=== PATIENT | female | born 1980 | race Caucasian/White ===

== ENCOUNTER 2016-07-25 07:34 | Emergency (ER) | payer OTHER ==
[2016-07-25 07:45] VITALS: BMI 26.9
--- NOTE | 2016-07-25 07:53 | PDOC ---
History of Present Illness - General Chief Complaint: Migraine Headache Stated Complaint: HEADACHE/EMPLOYEE Time Seen by Provider: 07/25/16 07:53 History Source: Patient Exam Limitations: No Limitations - History of Present Illness Initial Comments: 07/25/16 07:53 CHIEF COMPLAINT: Headache HISTORY OF PRESENT ILLNESS: This is an otherwise healthy 35-year-old female presents for evaluation of headache. Patient has been taking Augmentin for the past 6 days for treatment of sinusitis. She has also been using Sudafed and Flonase. She reports that she has persistent frontal headache, worse on the left side, described as "pressure". She reports that her vision is "a little blurry." She has some mild photophobia and phonophobia. She denies nausea, focal weakness, dizziness, unsteady gait, or any other symptoms. She reports that she gets headaches frequently, but that this one is more intense than her usual. Vital signs on arrival are unremarkable. REVIEW OF SYSTEMS: GENERAL/CONSTITUTIONAL: Generalized weakness, malaise. No fever or chills. No weight change. HEAD, EYES, EARS, NOSE AND THROAT: Nasal congestion. No ear pain or discharge. No sore throat. CARDIOVASCULAR: No chest pain or palpitations. RESPIRATORY: Dry cough. No wheezing or shortness of breath. GASTROINTESTINAL: No nausea, vomiting, diarrhea or constipation. GENITOURINARY: No dysuria, frequency, or change in urination. MUSCULOSKELETAL: No joint or muscle swelling or pain. No neck or back pain. SKIN: No rash or easy bruising. NEUROLOGIC: See HPI. PSYCHIATRIC: No depression or anxiety. ENDOCRINE: No increased thirst. No abnormal weight change. HEMATOLOGIC/LYMPHATIC: No anemia, easy bleeding, or history of blood clots. ALLERGIC/IMMUNOLOGIC: No hives or skin allergy. No latex allergy. PHYSICAL EXAM: GENERAL: The patient is awake, alert, and fully oriented, in no acute distress. HEAD: Normal with no signs of trauma. ENT: Pupils equal, round and reactive to light, extraocular movements intact, sclera anicteric, conjunctiva clear. Neck supple. LUNGS: Clear to auscultation bilaterally. Normal excursion. No respiratory distress or use of accessory muscles. CV: RRR, S1/S2, no MRG. Cap refill < 2 sec. ABDOMEN: Soft, non-distended, non-tender. EXTREMITIES: Normal range of motion, no edema. NEUROLOGICAL: Normal speech, normal gait. CN II-XII grossly intact. PSYCH: Normal mood, normal affect. SKIN: Warm, dry, normal turgor, no rashes or lesions noted. Past History - Past Medical History Allergies/Adverse Reactions: Allergies Allergy/AdvReac Type Severity Reaction Status Date / Time No Known Allergies Allergy Verified 07/25/16 07:36 Home Medications: Ambulatory Orders NK [No Known Home Medication] 07/25/16 Other medical history: none - Psycho/Social/Smoking Cessation Hx Anxiety: No Suicidal Ideation: No Smoking History: Never smoked Have you smoked in the past 12 months: No Information on smoking cessation initiated: No Hx Alcohol Use: No Drug/Substance Use Hx: No Substance Use Type: None *Physical Exam - Vital Signs Last Vital Signs Temp Pulse Resp BP Pulse Ox 98.5 F 85 18 139/88 100 07/25/16 07:36 07/25/16 07:36 07/25/16 07:36 07/25/16 07:36 07/25/16 07:36 ED Treatment Course - LABORATORY CBC & Chemistry Diagram: 07/25/16 08:23 07/25/16 08:23 Medical Decision Making - Medical Decision Making 07/25/16 08:28 A/P: 35 year old female with frontal headache, currently being treated for sinusitis. No focal neurologic deficits. No meningismus. 1. Urine 2. Basic labs 3. Reglan/Benadryl, Toradol for abortive therapy 4. Sudafed for congestion (patient has not taken it for several days) 5. Re-assess *DC/Admit/Observation/Transfer Diagnosis at time of Disposition: Headache Qualifiers: Headache type: other headache syndrome Qualified Code(s): G44.89 - Other headache syndrome - Discharge Dispostion Disposition: HOME Condition at time of disposition: Improved Admit: No - Patient Instructions Printed Discharge Instructions: DI for Headache Additional Instructions: -Rest and stay well-hydrated -Take ibuprofen as prescribed for headaches -Follow up with your neurologist in [place] this week -Return here for sudden/worsening headache, weakness in one of your arms or legs , change in vision, difficulty walking, or any other concerning symptoms - Post Discharge Activity Work/School Note: Back to Work
[2016-07-25] MEDS ORDERED: METOCLOPRAMIDE HCL INJECTION 10 MG/2 ML VIAL IVPB ONE (07:58)
[2016-07-25] MEDS ORDERED: PSEUDOEPHEDRINE HCL 30 MG TABLET PO ONE (07:59)
[2016-07-25] MEDS ORDERED: KETOROLAC TROMETHAMINE 30 MG/1 ML VIAL IVPUSH ONE (07:59)
[2016-07-25] MEDS ORDERED: KETOROLAC TROMETHAMINE 30 MG/1 ML VIAL ONE (08:09)
[2016-07-25] MEDS ORDERED: METOCLOPRAMIDE HCL INJECTION 10 MG/2 ML VIAL ONE (08:09)
[2016-07-25 08:33] LABS: BASOPHIL 0.4 % (0-2.0); EOSINOPHIL 1.7 % (0-4.5); MCH 28.6 pg (25.7-33.7); MCHC 32.8 g/dl (32.0-36.0); MEAN CELL VOLUME 87.4 fl (80-96); MEAN PLT VOLUME 7.8 fl (7.5-11.1); NEUTROPHILS 44.5 % (42.8-82.8); PLATELET COUNT 311 K/MM3 (134-434); RDW 13.7 % (11.6-15.6); WHITE BLOOD COUNT 10.1 K/mm3 (4.0-10.0)
[2016-07-25 08:47] LABS: CREATININE 0.9 mg/dL (0.55-1.02)
[2016-07-25] MEDS ORDERED: SODIUM CHLORIDE 1,000 ML IV STA (09:31)
[2016-07-25 10:28] VITALS: BP 109/67; PULSE 74; TEMP 98
--- NOTE | 2016-07-25 10:30 | PDOC ---
*Physical Exam - Vital Signs Last Vital Signs Temp Pulse Resp BP Pulse Ox 98.5 F 85 18 139/88 100 07/25/16 07:36 07/25/16 07:36 07/25/16 07:36 07/25/16 07:36 07/25/16 07:36 ED Treatment Course - LABORATORY CBC & Chemistry Diagram: 07/25/16 08:23 07/25/16 08:23 - ADDITIONAL ORDERS Additional order review: Laboratory Results 07/25/16 07/25/16 08:23 07:53 Sodium 143 Potassium 4.9 D Chloride 107 Carbon Dioxide 27 Anion Gap 9 BUN 18 Creatinine 0.9 D Random Glucose 92 D Calcium 9.0 Urine HCG, Qual Negative 07/25/16 08:23 RBC 4.86 MCV 87.4 MCHC 32.8 RDW 13.7 MPV 7.8 Neutrophils % 44.5 Lymphocytes % 45.0 H Monocytes % 8.4 Eosinophils % 1.7 Basophils % 0.4 - Medications Given in the ED: ED Medications Discontinued Medications Generic Name Dose Route Start Last Admin Trade Name Neyda PRN Reason Stop Dose Admin Diphenhydramine HCl 12.5 mg 07/25/16 07:59 07/25/16 08:30 Benadryl Injection - IVPUSH 07/25/16 08:00 12.5 mg ONCE ONE Administration Ketorolac Tromethamine 30 mg 07/25/16 07:59 07/25/16 09:15 Toradol Injection - IVPUSH 07/25/16 08:00 30 mg ONCE ONE Administration Metoclopramide HCl 10 mg 07/25/16 07:58 07/25/16 08:30 Reglan Injection - IVPB 07/25/16 07:59 10 mg ONCE ONE Administration Pseudoephedrine HCl 30 mg 07/25/16 07:59 07/25/16 09:15 Sudafed - PO 07/25/16 08:00 30 mg ONCE ONE Administration Medical Decision Making - Medical Decision Making 07/25/16 10:28 Patient seen and evaluated with the nurse practitioner. I agree with the overall evaluation, assessment, and management with the following summary of visit: 35y/o F with long history of headache syndrome, followed by neuro as outpt with normal imaging in the past, p/w headache. neuro intact. labs wnl, feels markedly improved after meds. Agrees with d/c plan. Presentation most consistent with exacerbation of underlying primary headache syndrome, no suspicion for infectious process or bleed, normal imaging in past plus normal neuro exam reassuring for any space occupying lesion. d/c to outpt neuro f/u understands return criteria *DC/Admit/Observation/Transfer Diagnosis at time of Disposition: Headache Qualifiers: Headache type: other headache syndrome Qualified Code(s): G44.89 - Other headache syndrome - Prescriptions Prescriptions: Ibuprofen [Motrin -] 600 mg PO QID PRN #30 tablet PRN Reason: Headache - Referrals Referrals: STAFF,NOT ON [Primary Care Provider] - - Patient Instructions Printed Discharge Instructions: DI for Headache Additional Instructions: -Rest and stay well-hydrated -Take ibuprofen as prescribed for headaches -Follow up with your neurologist in [place] this week -Return here for sudden/worsening headache, weakness in one of your arms or legs , change in vision, difficulty walking, or any other concerning symptoms - Post Discharge Activity Work/School Note: Back to Work
== END 2016-07-25 10:43 | disposition home or self-care (01) ==
LOC: JER 07:34
PROC: 3E0337Z Introduction of Electrolytic and Water Balance Substance into Peripheral Vein, Percutaneous Approach (ICD-10-PCS; principal; 2016-07-25)
PROC: 3E0333Z Introduction of Anti-inflammatory into Peripheral Vein, Percutaneous Approach (ICD-10-PCS; 2016-07-25)
PROC: 3E033GC Introduction of Other Therapeutic Substance into Peripheral Vein, Percutaneous Approach (ICD-10-PCS; 2016-07-25)
DX: G44.89 Other headache syndrome (principal); J32.9 Chronic sinusitis, unspecified
CPT/HCPCS: 36415; 80048; 84703; 85025; 99282-25